=== PATIENT | male | born 1995 | race Hispanic/Latino ===

== ENCOUNTER 2022-11-08 09:49 | Inpatient (IN) | payer OTHER ==
[~2022-11-08] VITALS: Ht 185.4 cm; Wt 81.6 kg
[2022-11-08] MEDS ORDERED: CEFTRIAXONE 1 GM VIAL ONE (10:33)
[2022-11-08] MEDS ORDERED: SODIUM CHLORIDE 0.9% 1000ML 1,000 ML IV SCH (11:00)
[2022-11-08] MEDS ORDERED: PIPERACILLIN/TAZOBACTAM SOD 2.25 GM VIAL ONE (11:09)
[2022-11-08] MEDS ORDERED: SODIUM CHLORIDE 0.9% 1000ML 1,000 ML ONE (11:09)
[2022-11-08] MEDS: SODIUM CHLORIDE 0.9% 1000ML 1,000 ML IV SCH ×2 (11:24→22:28)
[2022-11-08] MEDS: PIPERACILLIN/TAZOBACTAM 4.5 GM in SODIUM CHLORIDE 0.9% 100 ML IV SCH ×2 (11:24→22:28)
[2022-11-08 13:18] VITALS: BP 124/86
[2022-11-08 13:35] VITALS: BP 124/86
[2022-11-08] MEDS ORDERED: LIDOCAINE 1% 10 ML MULTIDOSE VIAL IJ ONE (15:45)
[2022-11-08 16:23] VITALS: BP 127/76
[2022-11-08] MEDS ORDERED: ACETAMINOPHEN 325 MG TAB PO PRN (16:45)
[2022-11-08] MEDS ORDERED: KETOROLAC TROMETHAMINE 30 MG/ML VIAL IV PRN (16:45)
[2022-11-08] MEDS: ENOXAPARIN SOD INJ 40 MG/0.4 ML SYR SC SCH (17:20)
[2022-11-08] MEDS: CELECOXIB 100 MG CAP PO SCH (17:20)
[2022-11-08] MEDS: MUPIROCIN 2% OINT 22 GM TUBE TOP SCH (17:21)
[2022-11-08] MEDS: GABAPENTIN 100 MG CAP PO SCH (20:07)
[2022-11-08 20:36] VITALS: BP 113/69
[2022-11-08 21:46] VITALS: BP 113/69
[2022-11-09] VITALS: BP 112/67
[2022-11-09] MEDS: PIPERACILLIN/TAZOBACTAM 4.5 GM in SODIUM CHLORIDE 0.9% 100 ML IV SCH ×3 (05:06→20:25)
[2022-11-09 05:41] VITALS: BP 111/71
[2022-11-09 06:14] LABS: BASOPHILS # (AUTO) 0.1 (0.0-0.1); BASOPHILS % 0.7 % (0.0-1.0); EOSINOPHILS # (AUTO) 0.6 (0.0-0.4); EOSINOPHILS % 7.4 % (0.0-6.0); HEMATOCRIT 44.1 % (38.2-49.6); HEMOGLOBIN 14.5 g/dL (14.0-18.0); LYMPHOCYTES # (AUTO) 2.5 (1.0-3.2); LYMPHOCYTES % 32.9 % (18.0-39.1); MEAN CORPUSCULAR HEMOGLOBIN 29.4 pg (28-32); MEAN CORPUSCULAR HGB CONC 32.9 g/dL (31-35); MEAN CORPUSCULAR VOLUME 89.5 fL (81-99); MONOCYTES # (AUTO) 0.6 (0.2-0.8); MONOCYTES % 8.2 % (4.4-11.3); NEUTROPHILS # (AUTO) 3.8 (2.1-6.9); NEUTROPHILS % 50.5 % (38.7-80.0); PLATELET COUNT 235 x10e3/uL (140-360); RED BLOOD COUNT 4.93 x10e6/uL (4.3-5.7); RED CELL DISTRIBUTION WIDTH 12.5 % (11.7-14.4)
[2022-11-09 06:27] LABS: ANION GAP 9.9 mmol/L (8-16); CALCIUM 8.9 mg/dL (8.4-10.2); CREATININE, SERUM 0.95 mg/dL (0.72-1.25); POTASSIUM 3.9 mmol/L (3.5-5.1)
[2022-11-09 07:30] VITALS: BP 104/64
[2022-11-09 07:45] VITALS: BP 104/64
[2022-11-09] MEDS: CELECOXIB 100 MG CAP PO SCH ×2 (08:33→16:56)
[2022-11-09] MEDS: PANTOPRAZOLE SOD 40 MG TABEC PO SCH (08:33)
[2022-11-09] MEDS: GABAPENTIN 100 MG CAP PO SCH ×3 (08:33→20:26)
[2022-11-09] MEDS: Vancomycin IV 1 GM in SODIUM CHLORIDE 0.9% 250ML 250 ML IV SCH (08:34)
[2022-11-09] MEDS: MUPIROCIN 2% OINT 22 GM TUBE TOP SCH ×3 (08:38→18:52)
[2022-11-09] MEDS ORDERED: MUPIROCIN 2% OINT 22 GM TUBE TOP SCH (09:00)
[2022-11-09] MEDS ORDERED: Vancomycin IV 1 GM in SODIUM CHLORIDE 0.9% 250ML 250 ML IV SCH (09:00)
[2022-11-09 11:34] VITALS: BP 119/69
[2022-11-09] MEDS: SODIUM CHLORIDE 0.9% 1000ML 1,000 ML IV SCH ×2 (13:51→20:26)
[2022-11-09] MEDS: ENOXAPARIN SOD INJ 40 MG/0.4 ML SYR SC SCH (16:56)
[2022-11-09 20:00] VITALS: BP 123/86
[2022-11-09] MEDS ORDERED: SODIUM CHLORIDE 0.9% 100 ML ONE (20:06)
[2022-11-10] VITALS (8 sets, daily range): BP systolic 107–136; BP diastolic 64–84
[2022-11-10] MEDS: PIPERACILLIN/TAZOBACTAM 4.5 GM in SODIUM CHLORIDE 0.9% 100 ML IV SCH ×3 (05:25→23:23)
[2022-11-10] MEDS: PANTOPRAZOLE SOD 40 MG TABEC PO SCH (08:44)
[2022-11-10] MEDS: Vancomycin IV 1 GM in SODIUM CHLORIDE 0.9% 250ML 250 ML IV SCH (08:44)
[2022-11-10] MEDS: GABAPENTIN 100 MG CAP PO SCH ×3 (08:44→23:23)
[2022-11-10] MEDS: CELECOXIB 100 MG CAP PO SCH ×2 (08:44→16:29)
[2022-11-10] MEDS: SODIUM CHLORIDE 0.9% 1000ML 1,000 ML IV SCH (12:36)
[2022-11-10] MEDS: ENOXAPARIN SOD INJ 40 MG/0.4 ML SYR SC SCH (16:29)
[2022-11-10] MEDS: MUPIROCIN 2% OINT 22 GM TUBE TOP SCH (16:30)
[2022-11-11] VITALS (8 sets, daily range): BP systolic 110–125; BP diastolic 62–76
[2022-11-11] MEDS: SODIUM CHLORIDE 0.9% 1000ML 1,000 ML IV SCH ×2 (06:18→15:16)
[2022-11-11] MEDS: PIPERACILLIN/TAZOBACTAM 4.5 GM in SODIUM CHLORIDE 0.9% 100 ML IV SCH ×3 (06:19→23:00)
[2022-11-11] MEDS ORDERED: SODIUM CHLORIDE 0.9% 100 ML ONE (08:38)
[2022-11-11] MEDS: GABAPENTIN 100 MG CAP PO SCH ×3 (09:16→23:30)
[2022-11-11] MEDS: PANTOPRAZOLE SOD 40 MG TABEC PO SCH (09:16)
[2022-11-11] MEDS: CELECOXIB 100 MG CAP PO SCH ×2 (09:16→17:20)
[2022-11-11] MEDS: Vancomycin IV 1 GM in SODIUM CHLORIDE 0.9% 250ML 250 ML IV SCH (10:46)
[2022-11-11] MEDS: MUPIROCIN 2% OINT 22 GM TUBE TOP SCH ×2 (11:06→17:19)
[2022-11-11] MEDS: ENOXAPARIN SOD INJ 40 MG/0.4 ML SYR SC SCH (17:17)
[2022-11-11 20:33] LABS: BASOPHILS # (AUTO) 0.1 (0.0-0.1); BASOPHILS % 0.5 % (0.0-1.0); EOSINOPHILS # (AUTO) 0.5 (0.0-0.4); EOSINOPHILS % 4.9 % (0.0-6.0); HEMATOCRIT 43.4 % (38.2-49.6); HEMOGLOBIN 14.6 g/dL (14.0-18.0); LYMPHOCYTES # (AUTO) 3.6 (1.0-3.2); LYMPHOCYTES % 32.5 % (18.0-39.1); MEAN CORPUSCULAR HEMOGLOBIN 29.3 pg (28-32); MEAN CORPUSCULAR HGB CONC 33.6 g/dL (31-35); MEAN CORPUSCULAR VOLUME 87.1 fL (81-99); MONOCYTES # (AUTO) 0.8 (0.2-0.8); NEUTROPHILS % 54.9 % (38.7-80.0); PLATELET COUNT 271 x10e3/uL (140-360); RED BLOOD COUNT 4.98 x10e6/uL (4.3-5.7); RED CELL DISTRIBUTION WIDTH 12.2 % (11.7-14.4)
[2022-11-11] MEDS ORDERED: Vancomycin IV 2 GM in SODIUM CHLORIDE 0.9% 500ML 500 ML IV SCH (21:00)
[2022-11-12] VITALS (8 sets, daily range): BP systolic 109–127; BP diastolic 62–80
[2022-11-12] MEDS: SODIUM CHLORIDE 0.9% 1000ML 1,000 ML IV SCH ×2 (04:36→17:56)
[2022-11-12] MEDS: PIPERACILLIN/TAZOBACTAM 4.5 GM in SODIUM CHLORIDE 0.9% 100 ML IV SCH (06:45)
[2022-11-12] MEDS: CELECOXIB 100 MG CAP PO SCH ×2 (08:45→16:55)
[2022-11-12] MEDS: PANTOPRAZOLE SOD 40 MG TABEC PO SCH (08:45)
[2022-11-12] MEDS: GABAPENTIN 100 MG CAP PO SCH ×3 (08:45→21:00)
[2022-11-12] MEDS: MUPIROCIN 2% OINT 22 GM TUBE TOP SCH ×2 (08:50→16:57)
[2022-11-12] MEDS ORDERED: PIPERACILLIN/TAZOBACTAM 4.5 GM in SODIUM CHLORIDE 0.9% 100 ML IV SCH (16:00)
[2022-11-12] MEDS ORDERED: CEFTRIAXONE 2 GM in SODIUM CHLORIDE 0.9% 100 ML IV ONE (16:00)
[2022-11-12] MEDS: ENOXAPARIN SOD INJ 40 MG/0.4 ML SYR SC SCH (16:56)
[2022-11-12] MEDS ORDERED: Vancomycin IV 2 GM in SODIUM CHLORIDE 0.9% 500ML 500 ML IV SCH (17:00)
[2022-11-12 19:46] LABS: BASOPHILS # (AUTO) 0.1 (0.0-0.1); BASOPHILS % 0.5 % (0.0-1.0); EOSINOPHILS # (AUTO) 0.4 (0.0-0.4); EOSINOPHILS % 3.6 % (0.0-6.0); HEMATOCRIT 45.1 % (38.2-49.6); HEMOGLOBIN 15.1 g/dL (14.0-18.0); LYMPHOCYTES # (AUTO) 2.8 (1.0-3.2); LYMPHOCYTES % 23.9 % (18.0-39.1); MEAN CORPUSCULAR HEMOGLOBIN 29.4 pg (28-32); MEAN CORPUSCULAR HGB CONC 33.5 g/dL (31-35); MEAN CORPUSCULAR VOLUME 87.9 fL (81-99); MONOCYTES # (AUTO) 0.7 (0.2-0.8); MONOCYTES % 5.7 % (4.4-11.3); NEUTROPHILS # (AUTO) 7.6 (2.1-6.9); PLATELET COUNT 265 x10e3/uL (140-360); RED BLOOD COUNT 5.13 x10e6/uL (4.3-5.7); RED CELL DISTRIBUTION WIDTH 12.1 % (11.7-14.4)
[2022-11-13] VITALS (9 sets, daily range): BP systolic 114–138; BP diastolic 67–80
[2022-11-13] MEDS: PANTOPRAZOLE SOD 40 MG TABEC PO SCH (08:52)
[2022-11-13] MEDS: GABAPENTIN 100 MG CAP PO SCH ×3 (08:52→20:56)
[2022-11-13] MEDS: CELECOXIB 100 MG CAP PO SCH ×2 (08:52→16:33)
[2022-11-13] MEDS: SODIUM CHLORIDE 0.9% 1000ML 1,000 ML IV SCH ×2 (10:41→19:15)
[2022-11-13] MEDS: MUPIROCIN 2% OINT 22 GM TUBE TOP SCH ×2 (11:41→16:34)
[2022-11-13] MEDS: CEFTRIAXONE 2 GM in SODIUM CHLORIDE 0.9% 100 ML IV SCH (16:33)
[2022-11-13] MEDS: ENOXAPARIN SOD INJ 40 MG/0.4 ML SYR SC SCH (16:33)
[2022-11-14] VITALS: BP 123/75
[2022-11-14 04:00] VITALS: BP 130/70
[2022-11-14 09:03] VITALS: BP 124/71
[2022-11-14] MEDS: CELECOXIB 100 MG CAP PO SCH ×2 (09:23→16:35)
[2022-11-14] MEDS: PANTOPRAZOLE SOD 40 MG TABEC PO SCH (09:23)
[2022-11-14] MEDS: GABAPENTIN 100 MG CAP PO SCH ×2 (09:23→13:38)
[2022-11-14 12:24] VITALS: BP 112/65
[2022-11-14] MEDS: MUPIROCIN 2% OINT 22 GM TUBE TOP SCH ×2 (13:38→17:00)
[2022-11-14] MEDS: SODIUM CHLORIDE 0.9% 1000ML 1,000 ML IV SCH (13:43)
[2022-11-14 16:21] VITALS: BP 127/73
[2022-11-14] MEDS: CEFTRIAXONE 2 GM in SODIUM CHLORIDE 0.9% 100 ML IV SCH (16:38)
[2022-11-14] MEDS: ENOXAPARIN SOD INJ 40 MG/0.4 ML SYR SC SCH (16:38)
== END 2022-11-14 18:35 | disposition home or self-care (01) | DRG 605 ==
LOC: FSED 10:00 → ERHOLD 10:59 → MED/SURG3 12:59 → MED/SURG2 11-09 16:06
PROVIDERS: ADMIT Internal Medicine; ATTEND Internal Medicine
PROC: 0Y9M0ZZ Drainage of Right Foot, Open Approach (ICD-10-PCS; principal; 2022-11-08)
DX: S91.331A Puncture wound without foreign body, right foot, initial encounter (principal); L03.115 Cellulitis of right lower limb; M86.9 Osteomyelitis, unspecified; W20.8XXA Other cause of strike by thrown, projected or falling object, initial encounter
CPT/HCPCS: 36415; 36569; 71045; 80048; 80202; 85025; 85651; 86140; 87071; 87075; 87205; 96361; 99252; 99284; J0696; J1650; J2543; J3370; J7030; J7040; J7050